=== PATIENT | male | born 1990 | race Caucasian/White ===

== ENCOUNTER 2017-03-01 14:18 | Emergency (ER) | payer MEDICAID ==
[~2017-03-01] VITALS: Ht 172.7 cm; Wt 87.0 kg
[2017-03-01] MEDS ORDERED: LORazepam 2 MG/ML, 1ML IVPush ONE (14:30)
[2017-03-01] MEDS ORDERED: MAALOX/HYOSCYAMINE/LIDOCAINE 45 ML BOTTLE PO ONE (14:30)
[2017-03-01] MEDS ORDERED: FAMOTIDINE 20 MG/2 ML IVP ONE (14:30)
[2017-03-01] MEDS ORDERED: ONDANSETRON 2MG/ML, 2ML IVPush ONE (14:30)
[2017-03-01] MEDS ORDERED: SODIUM CHLORIDE 0.9% 1,000ML IVBOLUS ONE (14:30)
[2017-03-01] MEDS ORDERED: CHLORDIAZEPOXIDE 25 MG CAPSULE PO ONE (14:30)
[2017-03-01] MEDS ORDERED: SODIUM CHLORIDE FLUSH 10ML SYR IVF ONE (14:30)
[2017-03-01] MEDS ORDERED: ONDANSETRON 2MG/ML, 2ML ONE (14:37)
[2017-03-01] MEDS ORDERED: LORazepam 2 MG/ML, 1ML ONE (14:37)
[2017-03-01] MEDS ORDERED: FAMOTIDINE 20 MG/2 ML ONE (14:37)
[2017-03-01] MEDS ORDERED: MAALOX/HYOSCYAMINE/LIDOCAINE 45 ML BOTTLE ONE (14:37)
[2017-03-01 15:03] LABS: ASPARTATE AMINO TRANSFERASE 142 U/L (15-37); BLOOD UREA NITROGEN 5 mg/dL (7-18)
[2017-03-01 15:08] LABS: IS PT STATUS REG ER OR PRE ER? YES
[2017-03-01 15:59] VITALS: BP 132/87
== END 2017-03-01 16:26 | disposition home or self-care (01) ==
LOC: ED 16:15
DX: K29.20 Alcoholic gastritis without bleeding (principal); F10.10 Alcohol abuse, uncomplicated; I10 Essential (primary) hypertension; F12.10 Cannabis abuse, uncomplicated; F10.239 Alcohol dependence with withdrawal, unspecified; R44.3 Hallucinations, unspecified
CPT/HCPCS: 36415; 71010; 80053; 83690; 84484; 85025; 93005; 96361; 96374; 96375; 99285; J2060; J2405; J7030; S0028

== ENCOUNTER 2017-07-05 22:25 | Emergency (ER) | payer MEDICAID ==
[~2017-07-05] VITALS: Ht 172.7 cm; Wt 80.8 kg
[2017-07-05 23:40] LABS: HEMATOCRIT 50.2 % (39.2-51.8); HEMOGLOBIN 17.3 g/dL (13.7-18.0); WHITE BLOOD COUNT 5.4 x10^3/uL (3.4-10)
[2017-07-05 23:52] LABS: ASPARTATE AMINO TRANSFERASE 248 U/L (15-37); BLOOD UREA NITROGEN 4 mg/dL (7-18)
[2017-07-06] MEDS ORDERED: LORazepam 1MG TABLET ONE (01:09)
[2017-07-06 01:29] VITALS: BP 147/99
[2017-07-06] MEDS ORDERED: LORazepam 1MG TABLET PO ONE (01:30)
== END 2017-07-06 01:32 | disposition home or self-care (01) ==
LOC: ED 07-06 01:27
DX: F10.220 Alcohol dependence with intoxication, uncomplicated (principal); F17.200 Nicotine dependence, unspecified, uncomplicated; I10 Essential (primary) hypertension
CPT/HCPCS: 36415; 80053; 80307; 83690; 85025; 99284; G0479